=== PATIENT | male | born 1965 | race Hispanic/Latino ===

== ENCOUNTER 2021-04-24 12:42 | Inpatient (IN) | payer SELFPAY ==
[~2021-04-24] VITALS: Ht 170.2 cm; Wt 126.9 kg
[2021-04-24] VITALS (8 sets, daily range): BP systolic 94–140; BP diastolic 55–76
[2021-04-24 13:27] LABS: BASOPHILS % (AUTO) 0.8 % (0.0-5.0); EOSINOPHILS % (AUTO) 0.3 % (0.0-8.0); HEMATOCRIT 36.8 % (42-54); LYMPHOCYTES % (AUTO) 17.4 % (21.0-51.0); MEAN CORPUSCULAR HEMOGLOBIN 30.4 pg (27.0-33.0); MEAN CORPUSCULAR HGB CONC 35.3 g/dL (32.0-36.0); MONOCYTES % (AUTO) 6.8 % (3.0-13.0); NEUTROPHILS % (AUTO) 73.5 % (40.0-77.0); PLATELET COUNT (AUTO) 148 K/uL (130-400); RED BLOOD CELL COUNT(AUTO) 4.28 MIL/uL (4.50-6.20); WHITE BLOOD COUNT (AUTO) 12.2 K/uL (4.8-10.8)
[2021-04-24] MEDS ORDERED: ACETAMINOPHEN 500 MG TABLET ONE (13:40)
[2021-04-24 14:01] LABS: ALBUMIN 2.3 g/dL (3.5-5.0); BILIRUBIN,TOTAL 1.2 mg/dL (0.2-1.0); CREATININE 1.5 mg/dL (0.5-1.5); POTASSIUM 3.9 mmol/L (3.5-5.1); TOTAL PROTEIN, SERUM 7.1 g/dL (6.0-8.3)
[2021-04-24 14:01] LABS: APPEARANCE,URINE Cloudy (CLEAR); BILIRUBIN,URINE Small (NEGATIVE); COLOR,URINE Dark Yellow (YELLOW); GLUCOSE, URINE (UA) Negative (NEGATIVE); KETONES,URINE Trace mg/dL (NEGATIVE); LEUKOCYTE ESTERASE ,URINE Trace (NEGATIVE); NITRATE,URINE Negative (NEGATIVE); OCCULT BLOOD,URINE Large (NEGATIVE); PROTEIN,URINE POS 2+ mg/dL (NEGATIVE)
[2021-04-24] MEDS ORDERED: NACL 0.9% 1000ML 1,000 ML IV SCH (14:19)
[2021-04-24] MEDS: ACETAMINOPHEN 500 MG TABLET PO SCH (14:31)
[2021-04-24 14:57] LABS: BACTERIA,URINE Rare /HPF (None Seen); SQUAMOUS EPITHELIAL CELL,UR Moderate /HPF (0-2); WBC,URINE 0-1 /HPF (0-1)
[2021-04-24] MEDS ORDERED: CEFTRIAXONE 1G VIAL IVP SCH (15:17)
[2021-04-24 17:34] LABS: CREATININE 1.4 mg/dL (0.5-1.5); POTASSIUM 3.1 mmol/L (3.5-5.1)
[2021-04-24 17:40] LABS: CREATININE,URINE RANDOM 275 mg/dL (30-135); SODIUM,URINE RANDOM < 13 mmol/l (40-220)
[2021-04-24 17:45] LABS: AMPHET/METH SCREEN,URINE NEGATIVE (NEGATIVE); BARBITURATE SCREEN, URINE NEGATIVE (NEGATIVE); BENZODIAZEPINES SCREEN,URINE NEGATIVE (NEGATIVE); CANNABINOID SCREEN,URINE NEGATIVE (NEGATIVE); COCAINE SCREEN,URINE NEGATIVE (NEGATIVE); OPIATE SCREEN,URINE NEGATIVE (NEGATIVE); PHENCYCLIDINE SCREEN,URINE NEGATIVE (NEGATIVE)
[2021-04-24] MEDS: NACL 0.9% 1000ML 1,000 ML IV SCH (18:22)
[2021-04-24] MEDS: 0.9% NACL 50ML 50 ML IV.SOLN. IV SCH (18:22)
[2021-04-24] MEDS: ZOSYN 3.375GM +NS 50ML IV SCH (18:22)
[2021-04-24] MEDS: DOXYCYCLINE HYCLATE 100 MG TABLET PO SCH (21:24)
[2021-04-24 23:14] LABS: CREATININE 1.4 mg/dL (0.5-1.5); POTASSIUM 3.5 mmol/L (3.5-5.1)
[2021-04-25 00:11] VITALS: BP 98/55
[2021-04-25] MEDS: ZOSYN 3.375GM +NS 50ML IV SCH ×3 (02:06→16:17)
[2021-04-25] MEDS: 0.9% NACL 50ML 50 ML IV.SOLN. IV SCH ×3 (02:07→16:52)
[2021-04-25] MEDS: NACL 0.9% 1000ML 1,000 ML IV SCH (02:40)
[2021-04-25 03:56] VITALS: BP 107/66
[2021-04-25 05:17] LABS: BASOPHILS % (AUTO) 0.9 % (0.0-5.0); EOSINOPHILS % (AUTO) 0.7 % (0.0-8.0); HEMATOCRIT 33.5 % (42-54); LYMPHOCYTES % (AUTO) 22.5 % (21.0-51.0); MEAN CORPUSCULAR HEMOGLOBIN 29.8 pg (27.0-33.0); MEAN CORPUSCULAR HGB CONC 34.9 g/dL (32.0-36.0); MEAN CORPUSCULAR VOLUME 85.2 fL (79-99); MONOCYTES % (AUTO) 5.6 % (3.0-13.0); NEUTROPHILS % (AUTO) 67.6 % (40.0-77.0); PLATELET COUNT (AUTO) 140 K/uL (130-400); RED BLOOD CELL COUNT(AUTO) 3.93 MIL/uL (4.50-6.20); RED CELL DISTRIBUTION WIDTH 13.5 % (11.0-15.5); WHITE BLOOD COUNT (AUTO) 12.4 K/uL (4.8-10.8)
[2021-04-25 05:18] LABS: CREATININE 1.4 mg/dL (0.5-1.5); POTASSIUM 3.4 mmol/L (3.5-5.1)
[2021-04-25] MEDS ORDERED: LIDOCAINE HCL-MPF 1% 2ML VIAL IV PRN (08:00)
[2021-04-25] MEDS ORDERED: POTASSIUM CHLORIDE 20MEQ/100ML 100 ML IV PRN (08:00)
[2021-04-25] MEDS ORDERED: POTASSIUM CHLORIDE 10% ELIXIR 20 MEQ/15 ML UDCUP PO PRN (08:00)
[2021-04-25 08:22] VITALS: BP_SYST 105; BP_SYST 126; BP_SYST 130; BP_DIAS 71; BP_DIAS 73; BP_DIAS 79
[2021-04-25] MEDS: DOXYCYCLINE HYCLATE 100 MG TABLET PO SCH ×2 (08:46→20:41)
[2021-04-25] MEDS: ACETAMINOPHEN 500 MG TABLET PO SCH (08:55)
[2021-04-25] MEDS ORDERED: NACL 0.9% 1000ML 1,000 ML IV SCH (09:30)
[2021-04-25] MEDS: KCL 20 MEQ ERTAB PO PRN ×3 (11:24→16:53)
[2021-04-25 12:10] VITALS: BP 125/71
[2021-04-25 13:19] LABS: POTASSIUM 3.3 mmol/L (3.5-5.1)
[2021-04-25 13:35] LABS: CREATININE 1.4 mg/dL (0.5-1.5)
[2021-04-25 16:18] VITALS: BP 98/64
[2021-04-25] MEDS: INSULIN HUMULIN R 100 UNIT/ML 3ML SQ SCH ×2 (17:07→20:41)
[2021-04-25 17:25] LABS: CREATININE 1.4 mg/dL (0.5-1.5); POTASSIUM 3.9 mmol/L (3.5-5.1)
[2021-04-25 20:00] VITALS: BP 116/64
[2021-04-26] VITALS (9 sets, daily range): BP systolic 94–131; BP diastolic 52–75
[2021-04-26 00:40] LABS: CREATININE 1.3 mg/dL (0.5-1.5); POTASSIUM 3.4 mmol/L (3.5-5.1)
[2021-04-26] MEDS: 0.9% NACL 50ML 50 ML IV.SOLN. IV SCH ×3 (02:00→17:59)
[2021-04-26] MEDS: ZOSYN 3.375GM +NS 50ML IV SCH ×3 (02:19→17:59)
[2021-04-26 03:44] LABS: HEMATOCRIT 32.9 % (42-54); MEAN CORPUSCULAR HEMOGLOBIN 29.4 pg (27.0-33.0); MEAN CORPUSCULAR HGB CONC 34.3 g/dL (32.0-36.0); MEAN CORPUSCULAR VOLUME 85.5 fL (79-99); RED BLOOD CELL COUNT(AUTO) 3.85 MIL/uL (4.50-6.20); RED CELL DISTRIBUTION WIDTH 14.3 % (11.0-15.5); WHITE BLOOD COUNT (AUTO) 12.8 K/uL (4.8-10.8)
[2021-04-26 04:05] LABS: ALBUMIN 1.8 g/dL (3.5-5.0); BILIRUBIN,TOTAL 0.6 mg/dL (0.2-1.0); CREATININE 1.2 mg/dL (0.5-1.5); POTASSIUM 3.6 mmol/L (3.5-5.1); TOTAL PROTEIN, SERUM 6.1 g/dL (6.0-8.3)
[2021-04-26 05:35] LABS: HEMOGLOBIN A1C 10.7 % (4.0-6.0)
[2021-04-26] MEDS: INSULIN HUMULIN R 100 UNIT/ML 3ML SQ SCH ×4 (05:52→21:00)
[2021-04-26] MEDS: KCL 20 MEQ ERTAB PO PRN ×2 (05:52→16:23)
[2021-04-26] MEDS: DOXYCYCLINE HYCLATE 100 MG TABLET PO SCH ×2 (09:22→21:10)
[2021-04-26 11:12] LABS: CREATININE 1.2 mg/dL (0.5-1.5); POTASSIUM 3.3 mmol/L (3.5-5.1)
[2021-04-26] MEDS: NACL 0.9% 1000ML 1,000 ML IV SCH (15:23)
[2021-04-26] MEDS: METFORMIN HCL 500 MG TABLET PO SCH ×2 (15:23→16:23)
[2021-04-26 17:31] LABS: CREATININE 1.2 mg/dL (0.5-1.5); POTASSIUM 3.3 mmol/L (3.5-5.1)
[2021-04-26 23:15] LABS: CREATININE 1.2 mg/dL (0.5-1.5); POTASSIUM 3.7 mmol/L (3.5-5.1)
[2021-04-27] MEDS: ZOSYN 3.375GM +NS 50ML IV SCH ×2 (03:32→09:49)
[2021-04-27] MEDS: 0.9% NACL 50ML 50 ML IV.SOLN. IV SCH ×2 (03:32→09:49)
[2021-04-27 03:55] VITALS: BP 113/76
[2021-04-27 04:08] LABS: BASOPHILS % (AUTO) 0.8 % (0.0-5.0); EOSINOPHILS % (AUTO) 2.8 % (0.0-8.0); HEMATOCRIT 32.4 % (42-54); LYMPHOCYTES % (AUTO) 40.1 % (21.0-51.0); MEAN CORPUSCULAR HEMOGLOBIN 29.6 pg (27.0-33.0); MEAN CORPUSCULAR HGB CONC 33.6 g/dL (32.0-36.0); MONOCYTES % (AUTO) 5.1 % (3.0-13.0); NEUTROPHILS % (AUTO) 48.4 % (40.0-77.0); PLATELET COUNT (AUTO) 243 K/uL (130-400); RED BLOOD CELL COUNT(AUTO) 3.68 MIL/uL (4.50-6.20); RED CELL DISTRIBUTION WIDTH 14.8 % (11.0-15.5)
[2021-04-27 04:23] LABS: CREATININE 1.2 mg/dL (0.5-1.5); MAGNESIUM 1.9 mg/dL (1.80-2.40); POTASSIUM 3.3 mmol/L (3.5-5.1)
[2021-04-27] MEDS: INSULIN HUMULIN R 100 UNIT/ML 3ML SQ SCH ×3 (05:36→16:57)
[2021-04-27] MEDS: KCL 20 MEQ ERTAB PO PRN ×2 (06:01→16:53)
[2021-04-27 07:47] VITALS: BP 115/76
[2021-04-27] MEDS: DOXYCYCLINE HYCLATE 100 MG TABLET PO SCH (09:49)
[2021-04-27] MEDS: METFORMIN HCL 500 MG TABLET PO SCH ×3 (09:50→16:53)
[2021-04-27 11:29] VITALS: BP 107/65
[2021-04-27] MEDS: NACL 0.9% 1000ML 1,000 ML IV SCH (12:33)
[2021-04-27] MEDS ORDERED: CEFUROXIME AXETIL 250 MG TABLET PO SCH (12:45)
[2021-04-27 15:34] VITALS: BP 117/74
[2021-04-27] MEDS ORDERED: GLIP5TAB11 PO (17:45)
[2021-04-27] MEDS ORDERED: CEFU500T67 PO (17:45)
[2021-04-27] MEDS ORDERED: DOXY100T2 PO (17:45)
[2021-04-27] MEDS ORDERED: METF-444 PO (17:45)
== END 2021-04-27 18:34 | disposition home or self-care (01) | DRG 872 ==
LOC: EDH 12:42 → EDHIP 12:43 → 4BH 20:28
PROVIDERS: ADMIT Internal Medicine; ATTEND Internal Medicine
DX: A41.50 Gram-negative sepsis, unspecified (principal); E87.1 Hypo-osmolality and hyponatremia; N17.9 Acute kidney failure, unspecified; N39.0 Urinary tract infection, site not specified; Z68.41 Body mass index [BMI] 40.0-44.9, adult; E11.65 Type 2 diabetes mellitus with hyperglycemia; E66.01 Morbid (severe) obesity due to excess calories; E86.0 Dehydration; I95.1 Orthostatic hypotension; N20.0 Calculus of kidney; N21.0 Calculus in bladder; E87.8 Other disorders of electrolyte and fluid balance, not elsewhere classified; R74.8 Abnormal levels of other serum enzymes; K52.9 Noninfective gastroenteritis and colitis, unspecified; E86.1 Hypovolemia; Z20.822 Contact with and (suspected) exposure to COVID-19
CPT/HCPCS: 36415; 71045; 74176; 80048; 80053; 80061; 80305; 81001; 82533; 82570; 82948; 83036; 83605; 83690; 83735; 84300; 84443; 84484; 85025; 85027; 86757; 87040; 87077; 87088; 87177; 87186; 87635; 93005; C9803; G0378; J0696; J1815; J2543; J7030